=== PATIENT | male | born 1960 | race Caucasian/White ===

== ENCOUNTER 2024-09-27 18:43 | Emergency (ER) | payer OTHER, SELFPAY ==
[2024-09-27 18:51] VITALS: BP 117/81; PULSE 142; RESP 16; TEMP 37.6; O2SAT 94
--- NOTE | 2024-09-27 18:57 | ECG_ITS ---
[facility] Test Date: 2024-09-27 Pat Name: Ronnell Villalta Department: Room: Gender: Male Supervisor Remelt: : 1960 Requested By: Efren Hunter Order Number: [id number] Gabriel MD: Reyna Almendarez M.D. Measurements Intervals [place] Rate: 146 P: 0 CA: 0 QRS: -4 QRSD: 77 T: 46 QT: 258 QTc: 402 Interpretive Statements ATRIAL FLUTTER/TACHYCARDIA WITH RAPID VENTRICULAR RESPONSE ST DEPRESSION, CONSIDER SUBENDOCARDIAL INJURY [0.1+ mV ST DEPRESSION] No previous ECG available for comparison Electronically Signed On 09-30-2024 19:32:03 CDT by Reyna Almendarez M.D. [id number]
--- NOTE | 2024-09-27 19:16 | ED_ITS ---
Documented by User: Efren Hunter DO 09/27/24 22:04 HPI - Abdominal Pain 2 General: Chief Complaint: Abdominal Pain Stated Complaint: n/v feels blocked in chest urine orange Time Seen by Provider: 09/27/24 19:10 History of Present Illness: 64-year-old male presents with epigastri c pain has been going on off for about a month and a half significant worse over the last couple days. Patient has some nausea and reports that have a hard time keeping them down. With decreased intake over the last couple days. Associated Symptoms: Reports nausea and vomiting Related Data Allergies Allergy/AdvReac Type Severity Reaction Status Date / Time acetaminophen (From Tylenol) Allergy Unknown Verified 09/27/24 18:59 codeine Allergy Unknown Verified 09/27/24 18:59 lisinopril Allergy Unknown Verified 09/27/24 18:59 Penicillins Allergy Unknown Verified 09/27/24 18:59 Review of Systems 2 Card: Denies: palpitations Resp: Denies: dyspnea or wheezing GI: Reports: abdominal pain, nausea and vomiting Skin/Breast: Denies: rash Physical Exam 2 Const: COMMON NORMALS: average body habitus, patient oriented x3 and alert Resp: COMMON NORMALS: normal respiratory effort and clear to auscultation bilaterally AUSCULTATION: clear to auscultation bilaterally Cardio: RATE: tachycardic RHYTHM: abnormal rhythm GI: COMMON NORMALS: Soft to palpation PALPATION: Yes Soft to palpation and Yes Tenderness to palpation present (GI) (Epigastric) Extremity: COMMON NORMALS: normal to inspection and full ROM Neuro: COMMON NORMALS: patient oriented x3 SENSORIUM/ORIENTATION: Yes alert Psych: COMMON NORMALS: mental status grossly normal, cooperative and normal affect Skin: COMMON NORMALS: no rashes or lesions noted GENERAL SKIN EXAM: no rashes or lesions noted and jaundice Course 2 Vital Signs: Vital signs: Vital Signs Temperature 99.6 F 09/27/24 18:51 Pulse Rate 94 09/28/24 01:00 Respiratory Rate 18 09/28/24 01:00 Blood Pressure 103/75 09/28/24 01:00 Pulse Oximetry 96 09/28/24 01:00 Oxygen Delivery Me thod Room Air 09/28/24 01:00 MDM - Abdominal Pain Medical Decision Making Patient's labs show significant elevated bili, lipase and elevated white count. Imaging is consistent with acute cholelithiasis and choledocholithiasis. Patient will need to be transferred to another facility for an ERCP. Patient's care was handed over to Dr. Bhakta at shift change awaiting return calls from transferring facilities for definitive transfer destination. Lab Data 09/27/24 19:12 09/27/24 19:12 Labs/Radiology: Radiology Impressions Gallbladder Ultrasound 09/27/24 19:54 IMPRESSION: Findings suggestive of acute calculus cholecystitis. Next dilated common bile duct although the source of dilatation is not apparent. This could be further evaluated with MRCP or ERCP. Abdomen/Pelvis CT 09/27/24 20:46 IMPRESSION: Findings consistent with acute cholecystitis and choledocholithiasis. Laboratory Results WBC 15.94 10^3/uL (3.29-11.43) H 09/27/24 19:12 RBC 5.45 10^6/uL (3.85-5.65) 09/27/24 19:12 Hgb 15.30 g/dL (11.27-16.99) 09/27/24 19:12 Hct 45.2 % (37-53) 09/27/24 19:12 MCV 82.9 fl (82-101) 09/27/24 19:12 MCH 28.1 pg (27-33) 09/27/24 19:12 MCHC 33.8 g/dL (30-55) 09/27/24 19:12 RDW 13.3 % (12.1-15.1) 09/27/24 19:12 Plt Count 279 10^3/cmm (157-399) 09/27/24 19:12 MPV 9.3 fL (7.4-10.4) 09/27/24 19:12 Neut % (Auto) 91.2 % 09/27/24 19:12 Lymph % (Auto) 1.9 % 09/27/24 19:12 [place] % (Auto) 6.2 % 09/27/24 19:12 Eos % (Auto) 0.0 % 09/27/24 19:12 Baso % (Auto) 0.2 % 09/27/24 19:12 Neut # (Auto) 14.53 10^3/uL (1.8-7.7) H 09/27/24 19:12 Lymph # (Auto) 0.3 10^3/uL (0.8-4.8) L 09/27/24 19:12 [place] # (Auto) 1.0 10^3/uL (0.2-0.9) H 09/27/24 19:12 Eos # (Auto) 0.0 10^3/uL (0.0-0.8) 09/27/24 19:12 Baso # (Auto) 0.0 10^3/uL (0.0-0.1) 09/27/24 19:12 Nucleated RBC % (auto) 0 % 09/27/24 19:12 Nucleated RBCs # 0.0 /100WBC 09/27/24 19:12 Sodium 134 mmol/L (136-145) L 09/27/24 19:12 Potassium 4.1 mmol/L (3.5-5.1) 09/27/24 19:12 Chloride 99 mmol/L (98-107) 09/27/24 19:12 Carbon Dioxide 18 mmol/L (22-29) L 09/27/24 19:12 Anion Gap 21.1 (5-19) H 09/27/24 19:12 BUN 12 mg/dL (8-23) 09/27/24 19:12 Creatinine 1.0 mg/dL (0.7-1.2) 09/27/24 19:12 GFR Calculation 75.2 mL/min (90-130) L 09/27/24 19:12 Glucose 129 mg/dL (65-115) H 09/27/24 19:12 Calculated Osmolality 279 mOsm/kg (285-295) L 09/27/24 19:12 Lactic Acid 1.7 mmol/L (0.5-2.2) 09/27/24 19:12 Calcium 9.2 mg/dL (8.5-10.5) 09/27/24 19:12 Magnesium 1.8 mg/dL (1.7-2.3) 09/27/24 19:12 Total Bilirubin 6.1 mg/dL (0.15-1.2) H 09/27/24 19:12 AST 124 U/L (0-40) H 09/27/24 19:12 ALT 145 U/L (0-41) H 09/27/24 19:12 Alkaline Phosphatase 443 U/L (40-130) H 09/27/24 19:12 Total Protein 7.7 g/dL (6.6-8.7) 09/27/24 19:12 Albumin 3.6 g/dL (3.5-5.2) 09/27/24 19:12 Globulin 4.1 g/dL (1.3-4.6) 09/27/24 19:12 Lipase 1612 U/L (13-60) H 09/27/24 19:12 Urine Color Dark yellow (Yellow) A 09/27/24 21:46 Urine Appearance Clear (CLEAR) 09/27/24 21:46 Urine pH 6.0 (5-7) 09/27/24 21:46 Ur Specific [place] 1.025 (1.005-1.030) 09/27/24 21:46 Urine Protein Trace (Negative) A 09/27/24 21:46 Urine Glucose (UA) Negative (Normal) 09/27/24 21:46 Urine Ketones 1+ (Negative) H 09/27/24 21:46 Urine Blood Negative (Negative) 09/27/24 21:46 Urine Nitrate Negative (Negative) 09/27/24 21:46 Urine Bilirubin 1+ (Negative) H 09/27/24 21:46 Urine Urobilinogen 4.0 mg/dL (Negative) H 09/27/24 21:46 Ur Leukocyte Esterase Negative (Negative) 09/27/24 21:46 Urine RBC 6-10 /hpf (0-2) 09/27/24 21:46 Urine WBC 0-5 /hpf (0-5) 09/27/24 21:46 Ur Squamous Epith Cells 6-10 /hpf (0-5) 09/27/24 21:46 Amorphous Sediment Not Reportable 09/27/24 21:46 Urine Bacteria None seen /hpf (NONE) 09/27/24 21:46 Hyaline Casts 0.81 /lpf 09/27/24 21:46 All radiology interpretation(s) finalized by discharge Discharge Plan Discharge Patient Disposition: Xfer Short-Term Hosp Clinical Impression: Choledocholithiasis with acute cholecystitis Condition: Stable Referrals: Kim,Jory, MARKETING PROJECT MANAGER [Primary Care Provider, Nurse Practitioner] Print Language: Japanese Coding Level of Care Code ED Carpenter Prototype for Chg Fwd Documented by User: Devin Bhakta MD 09/28/24 01:29 HPI - Abdominal Pain 2 General: Chief Complaint: Abdominal Pain Stated Complaint: n/v feels blocked in chest urine orange Time Seen by Provider: 09/27/24 19:10 Related Data Allergies Allergy/AdvReac Type Severity Reaction Status Date / Time acetaminophen (From Tylenol) Allergy Unknown Verified 09/27/24 18:59 codeine Allergy Unknown Verified 09/27/24 18:59 lisinopril Allergy Unknown Verified 09/27/24 18:59 Penicillins Allergy Unknown Verified 09/27/24 18:59 Course 2 Vital Signs: Vital signs: Vital Signs Temperature 99.6 F 09/27/24 18:51 Pulse Rate 94 09/28/24 01:00 Respiratory Rate 18 09/28/24 01:00 Blood Pressure 103/75 09/28/24 01:00 Pulse Oximetry 96 09/28/24 01:00 Oxygen Delivery Me thod Room Air 09/28/24 01:00 MDM - Abdominal Pain Medical Decision Making Patient's labs show significant elevated bili, lipase and elevated white count. Imaging is consistent with acute cholelithiasis and choledocholithiasis. Patient will need to be transferred to another facility for an ERCP. Patient's care was handed over to Dr. Bhakta at shift change awaiting return calls from transferring facilities for definitive transfer destination. I spoke with Dr. Whalen with the hospitalist service at [facility] in [place] and he is accepted the patient in transfer. Will prepare for transfer at this time. Lab Data 09/27/24 19:12 09/27/24 19:12 Labs/Radiology: Radiology Impressions Gallbladder Ultrasound 09/27/24 19:54 IMPRESSION: Findings suggestive of acute calculus cholecystitis. Next dilated common bile duct although the source of dilatation is not apparent. This could be further evaluated with MRCP or ERCP. Abdomen/Pelvis CT 09/27/24 20:46 IMPRESSION: Findings consistent with acute cholecystitis and choledocholithiasis. Laboratory Results WBC 15.94 10^3/uL (3.29-11.43) H 09/27/24 19:12 RBC 5.45 10^6/uL (3.85-5.65) 09/27/24 19:12 Hgb 15.30 g/dL (11.27-16.99) 09/27/24 19:12 Hct 45.2 % (37-53) 09/27/24 19:12 MCV 82.9 fl (82-101) 09/27/24 19:12 MCH 28.1 pg (27-33) 09/27/24 19:12 MCHC 33.8 g/dL (30-55) 09/27/24 19:12 RDW 13.3 % (12.1-15.1) 09/27/24 19:12 Plt Count 279 10^3/cmm (157-399) 09/27/24 19:12 MPV 9.3 fL (7.4-10.4) 09/27/24 19:12 Neut % (Auto) 91.2 % 09/27/24 19:12 Lymph % (Auto) 1.9 % 09/27/24 19:12 [place] % (Auto) 6.2 % 09/27/24 19:12 Eos % (Auto) 0.0 % 09/27/24 19:12 Baso % (Auto) 0.2 % 09/27/24 19:12 Neut # (Auto) 14.53 10^3/uL (1.8-7.7) H 09/27/24 19:12 Lymph # (Auto) 0.3 10^3/uL (0.8-4.8) L 09/27/24 19:12 [place] # (Auto) 1.0 10^3/uL (0.2-0.9) H 09/27/24 19:12 Eos # (Auto) 0.0 10^3/uL (0.0-0.8) 09/27/24 19:12 Baso # (Auto) 0.0 10^3/uL (0.0-0.1) 09/27/24 19:12 Nucleated RBC % (auto) 0 % 09/27/24 19:12 Nucleated RBCs # 0.0 /100WBC 09/27/24 19:12 Sodium 134 mmol/L (136-145) L 09/27/24 19:12 Potassium 4.1 mmol/L (3.5-5.1) 09/27/24 19:12 Chloride 99 mmol/L (98-107) 09/27/24 19:12 Carbon Dioxide 18 mmol/L (22-29) L 09/27/24 19:12 Anion Gap 21.1 (5-19) H 09/27/24 19:12 BUN 12 mg/dL (8-23) 09/27/24 19:12 Creatinine 1.0 mg/dL (0.7-1.2) 09/27/24 19:12 GFR Calculation 75.2 mL/min (90-130) L 09/27/24 19:12 Glucose 129 mg/dL (65-115) H 09/27/24 19:12 Calculated Osmolality 279 mOsm/kg (285-295) L 09/27/24 19:12 Lactic Acid 1.7 mmol/L (0.5-2.2) 09/27/24 19:12 Calcium 9.2 mg/dL (8.5-10.5) 09/27/24 19:12 Magnesium 1.8 mg/dL (1.7-2.3) 09/27/24 19:12 Total Bilirubin 6.1 mg/dL (0.15-1.2) H 09/27/24 19:12 AST 124 U/L (0-40) H 09/27/24 19:12 ALT 145 U/L (0-41) H 09/27/24 19:12 Alkaline Phosphatase 443 U/L (40-130) H 09/27/24 19:12 Total Protein 7.7 g/dL (6.6-8.7) 09/27/24 19:12 Albumin 3.6 g/dL (3.5-5.2) 09/27/24 19:12 Globulin 4.1 g/dL (1.3-4.6) 09/27/24 19:12 Lipase 1612 U/L (13-60) H 09/27/24 19:12 Urine Color Dark yellow (Yellow) A 09/27/24 21:46 Urine Appearance Clear (CLEAR) 09/27/24 21:46 Urine pH 6.0 (5-7) 09/27/24 21:46 Ur Specific [place] 1.025 (1.005-1.030) 09/27/24 21:46 Urine Protein Trace (Negative) A 09/27/24 21:46 Urine Glucose (UA) Negative (Normal) 09/27/24 21:46 Urine Ketones 1+ (Negative) H 09/27/24 21:46 Urine Blood Negative (Negative) 09/27/24 21:46 Urine Nitrate Negative (Negative) 09/27/24 21:46 Urine Bilirubin 1+ (Negative) H 09/27/24 21:46 Urine Urobilinogen 4.0 mg/dL (Negative) H 09/27/24 21:46 Ur Leukocyte Esterase Negative (Negative) 09/27/24 21:46 Urine RBC 6-10 /hpf (0-2) 09/27/24 21:46 Urine WBC 0-5 /hpf (0-5) 09/27/24 21:46 Ur Squamous Epith Cells 6-10 /hpf (0-5) 09/27/24 21:46 Amorphous Sediment Not Reportable 09/27/24 21:46 Urine Bacteria None seen /hpf (NONE) 09/27/24 21:46 Hyaline Casts 0.81 /lpf 09/27/24 21:46 Discharge Plan Discharge Patient Disposition: Xfer Short-Term Hosp Clinical Impression: Choledocholithiasis with acute cholecystitis Condition: Stable Referrals: Kim,Jory, MARKETING PROJECT MANAGER [Primary Care Provider, Nurse Practitioner] Print Language: Japanese Coding Level of Care Code ED Carpenter Prototype for Ry Ching
[2024-09-27] MEDS: sodium chloride 0.9% 1,000 ML 999 ML IV (19:28)
[2024-09-27] MEDS: pantoprazole 40 mg SDV IVP (19:28)
[2024-09-27] MEDS: ondansetron 2 mg/ML SDV 2 mL 4 MG IVP (19:28)
[2024-09-27 19:29] VITALS: BP 115/76; PULSE 137; O2SAT 96
[2024-09-27 19:31] LABS: Basophils % 0.2 %; Hematocrit 45.2 % (37-53); Lymphocytes # 0.3 10^3/uL (0.8-4.8); Lymphocytes % 1.9 %; Mean Corpuscular HGB Conc 33.8 g/dL (30-55); Mean Corpuscular Hemoglobin 28.1 pg (27-33); Mean Corpuscular Volume 82.9 fl (82-101); Mean Platelet Volume 9.3 fL (7.4-10.4); Monocytes % 6.2 %; Neutrophils # 14.53 10^3/uL (1.8-7.7); Neutrophils % 91.2 %; Nucleated Red Blood Cells % 0 %; Platelet Count 279 10^3/cmm (157-399); Red Blood Count 5.45 10^6/uL (3.85-5.65); Red Cell Distribution Width 13.3 % (12.1-15.1); White Blood Count 15.94 10^3/uL (3.29-11.43)
[2024-09-27 19:46] LABS: Alanine Aminotransferase 145 U/L (0-41); Albumin Level 3.6 g/dL (3.5-5.2); Alkaline Phosphatase 443 U/L (40-130); Anion Gap 21.1 (5-19); Aspartate Amino Transferase 124 U/L (0-40); Blood Urea Nitrogen 12 mg/dL (8-23); Calcium 9.2 mg/dL (8.5-10.5); Carbon Dioxide 18 mmol/L (22-29); Chloride 99 mmol/L (98-107); Globulin 4.1 g/dL (1.3-4.6); Glomerular Filtration Rate 75.2 mL/min (90-130); Glucose 129 mg/dL (65-115); Magnesium 1.8 mg/dL (1.7-2.3); Osmolality Calculated 279 mOsm/kg (285-295); Potassium 4.1 mmol/L (3.5-5.1); Sodium 134 mmol/L (136-145); Total Bilirubin 6.1 mg/dL (0.15-1.2); Total Protein 7.7 g/dL (6.6-8.7)
[2024-09-27 19:47] LABS: Lactic Sepsis W/Reflex 1.7 mmol/L (0.5-2.2)
--- NOTE | 2024-09-27 19:54 | USR_ITS ---
PROCEDURE INFORMATION: Exam: US Abdomen, Limited; Right Upper Quadrant Exam date and time: 09/27/2024 8:12 PM Age: 64 years old Clinical indication: Nausea and vomiting; Epigastric pain with n+v x 1 month; Additional info: Abnormal labs, pain TECHNIQUE: Imaging protocol: Real time ultrasound of the abdomen with image documentation. Limited exam focused on the right upper quadrant. COMPARISON: No relevant prior studies available. FINDINGS: Liver: Normal. No masses. Gallbladder: Gallstones appear to fill the gallbladder. Positive sonographic Liriano's sign. Gallbladder wall thickening. Biliary ducts: Common bile duct is dilated measuring 11 mm. Pancreas: Visualized pancreas is unremarkable. Right kidney: Normal. No mass. No hydronephrosis. US/US gall bladder [id number] IMPRESSION: Findings suggestive of acute calculus cholecystitis. Next dilated common bile duct although the source of dilatation is not apparent. This could be further evaluated with MRCP or ERCP.
[2024-09-27 19:56] LABS: Lipase 1612 U/L (13-60)
[2024-09-27 20:00] VITALS: BP 114/81; PULSE 99; RESP 16; O2SAT 97
--- NOTE | 2024-09-27 20:46 | CTR_ITS ---
PROCEDURE INFORMATION: Exam: CT Abdomen And Pelvis With Contrast Exam date and time: 09/27/2024 8:56 PM Age: 64 years old Clinical indication: Abdominal pain; Localized; Right upper quadrant (ruq); Additional info: Ruq pain TECHNIQUE: Imaging protocol: Computed tomography of the abdomen and pelvis with contrast. Radiation optimization: All CT scans at this facility use at least one of these dose optimization techniques: automated exposure control; mA and/or kV adjustment per patient size (includes targeted exams where dose is matched to clinical indication); or iterative reconstruction. Contrast material: OMNI 350; Contrast volume: 100 ml; Contrast route: INTRAVENOUS (IV); COMPARISON: US gall bladder [id number] 09/27/2024 8:12 PM RADIATION DOSE METRICS: Total DLP (mGy-cm): 974.1 FINDINGS: Liver: No discrete liver lesions are apparent. Smooth hepatic contour. Gallbladder and biliary ducts: The gallbladder is inflamed, thick-walled, and contracted around a number of gallstones. The common bile duct is mildly dilated with a 5 mm common duct stone at the level of the ampulla. Pancreas: No evidence of pancreatitis. No ductal dilation. Spleen: Spleen is within normal limits. Adrenal glands: Adrenal glands are within expected limits. Kidneys and ureters: No renal or ureteral calculi are identified. No hydronephrosis. Stomach and bowel: Mild inflammation of the hepatic flexure, likely secondary inflammation due to proximity to the inflamed gallbladder. Remainder of the large and small bowel are within normal limits. Appendix: No evidence of appendicitis. Intraperitoneal space: No free air. No significant fluid collection. Vasculature: No abdominal aortic aneurysm. Lymph nodes: No pathologically enlarged lymph nodes by CT size criteria. Urinary bladder: Unremarkable as visualized. Reproductive: Unremarkable as visualized. Bones/joints: Dextroscoliotic curvature with degenerative changes to the lumbar spine. No acute osseous findings. Soft tissues: Small fat containing umbilical hernia. CT/CT abdomen pelvis w con* [id number] IMPRESSION: Findings consistent with acute cholecystitis and choledocholithiasis.
[2024-09-27] MEDS: iohexol 350 mg/mL 500 mL Btl (per mL) IV (20:57)
[2024-09-27] MEDS: sodium chloride 0.9% 1,000 ML 150 ML IV (21:46)
[2024-09-27] MEDS: levofloxacin-dextrose 5 % 750 MG/150 ML PREMIX 100 MG IV (21:50)
--- NOTE | 2024-09-27 21:50 | ECG_ITS ---
[facility] Test Date: 2024-09-27 Pat Name: Ronnell Villalta Department: Room: Gender: Male Architectural Draftsman: : 1960 Requested By: Efren Hunter Order Number: [id number] Gabriel MD: Reyna Almendarez M.D. Measurements Intervals [place] Rate: 102 P: 0 KS: 0 QRS: 23 QRSD: 83 T: 42 QT: 330 QTc: 430 Interpretive Statements ATRIAL FIBRILLATION WITH RAPID VENTRICULAR RESPONSE ABNORMAL RHYTHM ECG Compared to ECG 09/27/2024 18:57:27 ST (T wave) deviation no longer present Electronically Signed On 09-30-2024 19:31:17 CDT by Reyna Almendarez M.D. [email or web address]
[2024-09-27 21:56] LABS: Bilirubin Urine 1+ (Negative); Blood Urine Negative (Negative); Glucose Urine UA Negative (Normal); Ketones Urine 1+ (Negative); Leukocyte Esterase Urine Negative (Negative); Nitrate Urine Negative (Negative); Protein Urine Trace (Negative); Specific Gravity, Urine 1.025 (1.005-1.030); Urine Appearance Clear (CLEAR); Urine Color Dark Yellow (Yellow)
[2024-09-27 21:59] LABS: Add Urine Microscopic? YES; Bacteria Urine None Seen /hpf; Hyaline Casts Urine 0.81 /lpf; WBC Urine 0-5 /hpf (0-5)
[2024-09-27 23:00] VITALS: BP 110/73; PULSE 89; RESP 17; O2SAT 97
[2024-09-28] VITALS (17 sets, daily range): BP systolic 90–120; BP diastolic 62–77; PULSE 73–101; RESP 17–18; O2SAT 92–98
== END 2024-09-28 17:51 | disposition short-term general hospital (02) ==
PROVIDERS: Student in an Organized Health Care Education/Training Program; Emergency Provider Emergency Medicine; PCP Nurse Practitioner Family
DX: K80.42 Calculus of bile duct with acute cholecystitis without obstruction (principal)
CPT/HCPCS: 74177; 76705; 80053; 81001; 83605; 83690; 83735; 85025; 93005; 96374; 96375; 99285; J1956; J2405; J2470; J7030

== ENCOUNTER 2025-01-03 12:58 | Outpatient (CLI) | payer OTHER, SELFPAY ==
--- NOTE | 2025-01-03 13:08 | CTR_ITS ---
PROCEDURE INFORMATION: Exam: CT Abdomen And Pelvis Without And With Contrast Exam date and time: 01/03/2025 01:42 PM Age: 64 years old Clinical indication: Abdominal pain; Bile duct injury, n/v, hepaticojejunostomy repair TECHNIQUE: Imaging protocol: Computed tomography of the abdomen and pelvis without and with contrast. Radiation optimization: All CT scans at this facility use at least one of these dose optimization techniques: automated exposure control; mA and/or kV adjustment per patient size (includes targeted exams where dose is matched to clinical indication); or iterative reconstruction. Contrast material: OMNI 350; Contrast volume: 100 ml; Contrast route: INTRAVENOUS (IV); COMPARISON: No relevant prior studies available. RADIATION DOSE METRICS: Total DLP (mGy-cm): 1913.45 FINDINGS: Tubes, catheters and devices: Surgical drain coursing through the liver into the proximal small bowel. Esophagus: Oral contrast in the distal esophagus. Diaphragm: Small hiatal hernia. Liver: Mild pneumobilia involving the left hepatic lobe. Gallbladder and biliary ducts: Status post cholecystectomy. Pancreas: Normal. No ductal dilation. Spleen: Normal. No splenomegaly. Adrenal glands: Normal. No mass. Kidneys and ureters: Normal. No hydronephrosis. Stomach and bowel: Nondistended small bowel and colon as visualized. No obstruction. Patient has a history of hepaticojejunostomy repair. Largely distended food filled stomach. Appendix: No evidence of appendicitis. Intraperitoneal space: Pneumoperitoneum. Vasculature: Atherosclerotic vascular disease. Lymph nodes: Unremarkable. No enlarged lymph nodes. Urinary bladder: Unremarkable as visualized. Reproductive: Unremarkable as visualized. Bones/joints: Degenerative changes of the spine with osteophytic lipping and multilevel facet arthropathy. Disc space narrowing at L3-L4 and L4-L5. Soft tissues: Hazy attenuation involving the anterior midline subcutaneous tissues with air bubbles, consistent with recent incision site. Inflammatory stranding in the right upper quadrant, nonspecific. CT/CT abdomen wo/w con [id number] IMPRESSION: 1. Pneumoperitoneum. 2. Mild pneumobilia involving the left hepatic lobe. 3. Surgical drain coursing through the liver into the proximal small bowel. 4. Hazy attenuation involving the anterior midline subcutaneous tissues with air bubbles, consistent with recent incision site. 5. Inflammatory stranding in the right upper quadrant, nonspecific. 6. Disc space narrowing at L3-L4 and L4-L5.
[2025-01-03] MEDS: iohexol 350 mg/mL 500 mL Btl (per mL) IV (13:52)
[2025-01-03] MEDS: iohexol 350 mg/mL 500 mL Btl (per mL) PO (13:53)
[2025-01-03 17:42] LABS: Blood Urea Nitrogen 8 mg/dL (8-23)
== END 2025-01-03 12:59 | disposition home or self-care (01) ==
PROVIDERS: Radiology Neuroradiology; PCP Nurse Practitioner Family; Visit Provider Nurse Practitioner
DX: S36.13XA Injury of bile duct, initial encounter (principal); X58.XXXA Exposure to other specified factors, initial encounter; Z93.4 Other artificial openings of gastrointestinal tract status; K83.8 Other specified diseases of biliary tract; Z87.19 Personal history of other diseases of the digestive system; K31.0 Acute dilatation of stomach; K66.8 Other specified disorders of peritoneum; I25.10 Atherosclerotic heart disease of native coronary artery without angina pectoris; M46.96 Unspecified inflammatory spondylopathy, lumbar region; M51.369 Other intervertebral disc degeneration, lumbar region without mention of lumbar back pain or lower extremity pain; D17.0 Benign lipomatous neoplasm of skin and subcutaneous tissue of head, face and neck; R19.01 Right upper quadrant abdominal swelling, mass and lump
CPT/HCPCS: 74170; 82565; 84520